=== PATIENT | female | born 1935 | race Caucasian/White ===

== ENCOUNTER 2016-07-17 15:08 | Emergency (ER) | payer MEDICARE, BC ==
[2016-07-17] MEDS ORDERED: MORPHINE SULFATE 5 MG/ML PFS IVP ONE (15:14)
[2016-07-17] MEDS ORDERED: 0.9 % SODIUM CHLORIDE 1,000 ML BAG IV ONE (15:14)
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
[2016-07-17 15:28] LABS: BASO % 0.2 % (0-6); EOS % 2.9 % (0-6); HEMATOCRIT 44.8 % (35.0-47.0); HEMOGLOBIN 14.2 gm/dl (11.6-16.0); LYMPH % 34.6 % (16-45); MEAN CELL VOLUME 103.2 fl (81-97); MEAN CORPUSCULAR HEMOGLOBIN 32.7 pg (27-33); MEAN CORPUSCULAR HGB CONC 31.7 g/dl (32-36); MONO % 13.3 % (0-9); PLATELET COUNT 270 K/uL (130-400); RED BLOOD COUNT 4.34 M/uL (3.80-5.40); RED CELL DISTRIBUTION WIDTH 12.9 % (11.5-14.5); WHITE BLOOD COUNT W/O DIFF 8.9 K/uL (4.2-12.2)
[2016-07-17 15:47] LABS: INR 1.06; PARTIAL THROMBOPLASTIN TIME 25.8 SECONDS (24.5-39.1)
[2016-07-17 15:56] LABS: ALB/GLOB RATIO 1.2 (1.1-1.8); ALBUMIN 4.5 gm/dL (3.5-5.0); ANION GAP 13.6 (7-16); BILIRUBIN,TOTAL 0.54 mg/dL (0.2-1.3); CARBON DIOXIDE 28.4 mmol/L (22-30); CREATININE 1.2 mg/dL (0.52-1.04); TOTAL PROTEIN 8.4 gm/dL (6.3-8.2)
[2016-07-17 16:30] LABS: ABO GROUP O; ANTIBODY SCREEN NEGATIVE (NEGATIVE); RH TYPE POSITIVE
[2016-07-17] MEDS ORDERED: CLONIDINE HCL 0.1 MG TABLET PO ONE (17:44)
== END 2016-07-17 18:15 | disposition short-term general hospital (02) ==
LOC: ER 15:08
DX: S01.01XA Laceration without foreign body of scalp, initial encounter (principal); S09.90XA Unspecified injury of head, initial encounter; R42 Dizziness and giddiness; W22.8XXA Striking against or struck by other objects, initial encounter; Y92.009 Unspecified place in unspecified non-institutional (private) residence as the place of occurrence of the external cause
CPT/HCPCS: 12035 ×2; 99285 ×2; 96374; 85025; 85730; 85610; 80053; 86900; 86901; 86850; 72125; 70450; J2270

== ENCOUNTER 2018-09-18 12:14 | Emergency (ER) | payer MEDICARE ==
[2018-09-18] MEDS ORDERED: 0.9 % SODIUM CHLORIDE 1,000 ML BAG IV ONE (12:54)
--- NOTE | 2018-09-18 12:55 | Emergency Department Record ---
History of Present Illness - General Chief Complaint: Dizziness Stated Complaint: DIZZY Time Seen by Provider: 09/18/18 12:42 Source: Patient, Family Mode of Arrival: EMS Limitations: No limitations - History of Present Illness Initial Comments: The patient is here due to becoming lightheaded in [place] an hour ago. She states she woke up this morning and felt weak. She went to [place] any way and while standing for awhile singing began to feel lightheaded. She then stated she had trouble with her vision and everything felt closed in. She then sat down and vomited and then soon felt better. The patient denied any CP, SOB, VLADIMIR , or VILLARREAL with the incident. Presently she feels all better. The patient denies any new medicines, any recent illnesses or injuries, and no change in her overall health. MD Complaint: Lightheadedness Onset/Timin -: Hour(s) Timing: Awoke with symptoms, Gradual onset Description: Lightheadedness History of Same: No History of Trauma: No Associated Symptoms: Weakness - Scarlet Coma Scale Eye Response: (4) Open spontaneously Motor Response: (6) Obeys commands Verbal Response: (5) Oriented Scarlet Total: 15 - Symptoms of Stroke Symptoms of stroke: Dizziness - Related Data Home Medications Medication Instructions Recorded Confirmed Last Taken Atorvastatin Calcium 10 mg PO 09/18/18 Unknown Denosumab [Prolia] 60 mg SQ 09/18/18 Unknown Lisinopril 10 mg PO DAILY 09/18/18 09/18/18 Unknown Loratadine 10 mg PO 09/18/18 Unknown Meloxicam 7.5 mg PO 09/18/18 Unknown Metoprolol Tartrate 50 mg PO 09/18/18 Unknown Rosuvastatin Calcium [Crestor] 5 mg PO 09/18/18 Unknown Venlafaxine HCl [Venlafaxine HCl 37.5 mg PO 09/18/18 Unknown ER] Previous Rx's Medication Instructions Recorded Nitrofurantoin Jones [Macrobid] 100 mg PO BID #14 capsule 09/18/18 Allergies Allergy/AdvReac Type Severity Reaction Status Date / Time No Known Allergies Allergy Unknown none Verified 09/18/18 15:35 [NO KNOWN ALLERGIES] Travel Screening - Travel/Exposure Within Last 30 Days Have you traveled within the last 30 days?: No - Travel/Exposure Within Last Year Have you traveled outside the [place] in the last year?: No - Additonal Travel Details Have you been exposed to anyone with a communicable illness?: No - Travel Symptoms Symptom Screening: Weakness, Vomiting Review of Systems Constitutional: Denies: Chills, Fever Eyes: Denies: Eye discharge ENT: Denies: Congestion Respiratory: Denies: Cough, Dyspnea Cardiovascular: Denies: Arrhythmia Endocrine: Denies: Fatigue Gastrointestinal: Denies: Nausea Genitourinary: Denies: Dysuria Musculoskeletal: Denies: Arthralgia Skin: Denies: Bruising Past Medical History - SOCIAL HISTORY Smoking Status: Never smoker Alcohol Use: Rare Drug Use: None - CARDIOVASCULAR Hx Hypertension: Yes Comment:: HYPERLIPIDEMIA - MUSCULOSKELETAL Hx Osteoporosis: Yes Family Medical History Any Significant Family History?: No Physical Exam - General General Appearance: Alert, Oriented x3, Cooperative, No acute distress - Head Head exam: Atraumatic, Normocephalic, Normal inspection - Eye Eye exam: Normal appearance, PERRL, EOMI - ENT Throat exam: Normal inspection. negative: Tonsillar erythema, Tonsillar exudate - Neck Neck exam: Normal inspection, Full ROM. negative: Tenderness - Respiratory Respiratory exam: Normal lung sounds bilaterally. negative: Respiratory distress - Cardiovascular Cardiovascular Exam: Regular rate, Normal rhythm, Normal heart sounds - GI/Abdominal GI/Abdominal exam: Soft, Normal bowel sounds. negative: Tenderness - Extremities Extremities exam: Normal inspection, Full ROM, Normal capillary refill. negative: Tenderness - Neurological Neurological exam: Alert, CN II-XII intact, Normal gait, Oriented X3, Other ( Neg Drift and Rhomberg exams.). negative: Abnormal gait, Altered, Motor sensory deficit - Psychiatric Psychiatric exam: negative: Anxious - Skin Skin exam: negative: Rash Course Vital Signs 09/18/18 12:19 Temperature 97.8 F Pulse Rate 58 L Respiratory 18 Rate Blood Pressure 149/92 Pulse Ox 98 - Reevaluation(s) Reevaluation #1: The patient is doing very well at this time. She is up walking normally with a steady gait. I did discuss the need to start the patient on an oral Abx for the UTI and will repeat a Trop at 16:00. 09/18/18 14:45 Reevaluation #2: The patient is doing a lot better at this time. She denies any further symptoms of lightheadedness and feels ready for home. She also denies any CP, SOB, VILLARREAL, or balance issues. 09/18/18 16:38 Medical Decision Making - Data Complexity MDM Data: Labs Ordered and/or Reviewed, EKG Ordered and/or Reviewed - Lab Data Result diagrams: 09/18/18 12:15 09/18/18 12:15 - EKG Data -: EKG Interpreted by Me EKG: No Acute Changes, Normal EKG Disposition Disposition: Discharge Clinical Impression: UTI (urinary tract infection) Qualifiers: Urinary tract infection type: site unspecified Hematuria presence: without hematuria Qualified Code(s): N39.0 - Urinary tract infection, site not specified Disposition: Home, Self-Care Condition: (2) Stable Instructions: Dizziness (ED) Additional Instructions: Please drink plenty of fluids and take the Macrobid as directed. Please see your family doctor later this week for recheck. Return to the ER for any worsening symptoms. Prescriptions: Nitrofurantoin Jones [Macrobid] 100 mg PO BID #14 capsule Forms: Patient Portal Access Time of Disposition: 16:40 Quality - Quality Measures Quality Measures: Blunt Head Trauma (>2yr) - Blunt Head Trauma - Adult Quality Measure: Measure #415: Utilization of CT for Minor Blunt Head Trauma ICD10 Codes Entered: Yes View Details: Yes Was CT ordered: No Does Patient Have Any of the Following: No Exclusions [place] Score: Please complete Scarlet Coma Scale above Utilization of CT for Minor Blunt Head Trauma: Not Eligible For Measure Additional Inclusion Criteria: More than 24hrs (OR) GCS not 15 (OR) CT not ordered. Not Eligible Reason: CT Not Ordered - Blood Pressure Screening View Details: Yes Does Patient Have Any of the Following: Active Dx of HTN Blood Pressure Classification: Hypertensive Reading Systolic Measurement: 149 Diastolic Measurement: 92 Screening for High Blood Pressure: Patient Exclusion, Hx of HTN [[id number]]
[2018-09-18 13:06] LABS: BASO % 0.4 % (0-6); EOS % 3.8 % (0-6); GRAN % 57.3 % (47-80); HEMATOCRIT 41.7 % (35.0-47.0); HEMOGLOBIN 12.9 gm/dl (11.6-16.0); LYMPH % 25.4 % (16-45); MEAN CELL VOLUME 102.5 fl (81-97); MEAN CORPUSCULAR HEMOGLOBIN 31.7 pg (27-33); MEAN CORPUSCULAR HGB CONC 30.9 g/dl (32-36); MEAN PLATELET VOLUME 10.7 fl (7.4-10.4); MONO % 13.1 % (0-9); PLATELET COUNT 334 K/uL (130-400); RED BLOOD COUNT 4.07 M/uL (3.80-5.40); RED CELL DISTRIBUTION WIDTH 13.1 % (11.5-14.5)
[2018-09-18 13:23] LABS: BLOOD UREA NITROGEN 31 mg/dL (8-23); CREATININE 1.7 mg/dL (0.5-0.9); EST GLOMERULAR FILTRATION RATE 30 mL/min
[2018-09-18 13:24] LABS: TOTAL PROTEIN 8.2 g/dL (6.6-8.7)
[2018-09-18 13:26] LABS: GLUCOSE,RANDOM 101 mg/dL (74-109)
[2018-09-18 13:28] LABS: ALB/GLOB RATIO 0.9 (1.1-1.8); ALBUMIN 3.9 g/dL (4.0-5.0); ALKALINE PHOSPHATASE 68 U/L (35-104); ALT/SGPT 15 U/L (<33); AST/SGOT 23 U/L (10.0-35.0)
[2018-09-18 13:40] LABS: THYROID STIMULATING HORMONE 1.96 uIU/mL (0.270-4.20)
[2018-09-18 15:05] LABS: URINE APPEARANCE CLOUDY; URINE BILIRUBIN NEGATIVE (NEGATIVE); URINE BLOOD NEGATIVE (NEGATIVE); URINE COLOR YELLOW; URINE GLUCOSE (UA) NEGATIVE (NEGATIVE); URINE KETONE NEGATIVE (NEGATIVE); URINE LEUKOCYTE ESTERASE MODERATE (NEGATIVE); URINE NITRITE POSITIVE (NEGATIVE); URINE PROTEIN NEGATIVE (NEGATIVE); URINE UROBILINOGEN 0.2 E.U./dL (0.20 - 1.00)
[2018-09-18 15:12] LABS: URINE BACTERIA 4+; URINE EPITHELIAL CELLS 0 - 2 (FEW); URINE RBC 0 - 2 (NONE SEEN); URINE WBC >50 (0-2/hpf)
[2018-09-18] MEDS ORDERED: NITROFURANTOIN MONO 100 MG CAPSULE PO ONE (15:14)
== END 2018-09-18 16:56 | disposition home or self-care (01) ==
LOC: ER 12:14
DX: N39.0 Urinary tract infection, site not specified (principal); R42 Dizziness and giddiness; R53.1 Weakness; R11.10 Vomiting, unspecified; I10 Essential (primary) hypertension
CPT/HCPCS: 80053; 81001; 84443; 84484; 85025; 93005; 93010; 99284; J7030